=== PATIENT | female | born 1955 | race Caucasian/White ===

== ENCOUNTER → 2022-02-06 | Outpatient (CLI) | payer MEDICARE ==
--- NOTE | 2022-02-06 16:07 | Diagnostic Imaging Report ---
INDICATION: Chronic neck pain. COMPARISON: None. FINDINGS: Frontal, lateral, and open-mouth radiographic views of the cervical spine were obtained. The cervical spine is seen down to the C7-T1 level on the lateral view. Static alignment is maintained. There is no significant riya or retrolisthesis. There is no evidence of jumped facets. Vertebral body heights are maintained. There is no acute fracture. Moderate degenerative changes are noted, greatest at the C5-C6 level where there is intervertebral disc height loss with endplate sclerotic change as well as anterior and posterior endplate osteophyte formations. There is also multilevel facet arthropathy. No unexpected radiopaque foreign bodies are seen. IMPRESSION: 1. No acute fracture or dislocation in the cervical spine. 2. Moderate multilevel degenerative changes, greatest at the C5-C6 level. Dictated by: Dictated on workstation # [id number]
== END ==
LOC: RAD 12:12
PROVIDERS: ATTEND Registered Nurse
DX: M47.22 Other spondylosis with radiculopathy, cervical region (principal)
CPT/HCPCS: 72040